=== PATIENT | female | born 1985 | race Two or more races ===

== ENCOUNTER 2018-03-21 08:22 | Outpatient (CLI) | payer OTHER | END 2018-03-21 08:30 | disposition home or self-care (01) | LOC: SONOGRAMA 08:22 | DX: N64.89 Other specified disorders of breast (principal) ==

== ENCOUNTER 2021-09-10 07:43 | Outpatient (CLI) | payer OTHER | END 2021-09-10 13:23 | disposition home or self-care (01) | LOC: LAB 07:43 | PROVIDERS: ATTEND Obstetrics & Gynecology Gynecology | DX: E03.8 Other specified hypothyroidism (principal); E78.2 Mixed hyperlipidemia; E55.9 Vitamin D deficiency, unspecified; E56.8 Deficiency of other vitamins; Z13.1 Encounter for screening for diabetes mellitus; R30.0 Dysuria ==

== ENCOUNTER 2023-02-28 08:19 | Emergency (ER) | payer OTHER ==
[~2023-02-28] VITALS: Ht 162.6 cm; Wt 65.8 kg
[2023-02-28] MEDS ORDERED: MEDROLPACK PO (09:50)
[2023-02-28] MEDS ORDERED: AMOX-CLAV 875-1 EAC1 PO (09:50)
[2023-02-28] MEDS ORDERED: TOBRAMYCIN-DEXAM5 ML OP (09:50)
[2023-02-28] MEDS ORDERED: XYZAL5 MG PO (09:50)
== END 2023-02-28 10:11 | disposition home or self-care (01) ==
LOC: ER 08:19
DX: H02.845 Edema of left lower eyelid (principal); H02.842 Edema of right lower eyelid; T78.40XA Allergy, unspecified, initial encounter

== ENCOUNTER → 2024-08-20 08:00 | Outpatient (CLI) | payer OTHER ==
[~2024-08-20 08:00] MED LIST: AMOX-CLAV 875-1 EAC1 PO; MEDROLPACK PO; TOBRAMYCIN-DEXAM5 ML OP; XYZAL5 MG PO
[2024-08-20 08:54] LABS: HEMATOCRIT 40.4 % (36.0-45.00); HEMOGLOBIN 13.8 g/dL (12.0-15.00); MEAN CELL VOLUME 97.3 fL (80.00-100.00); MEAN CORPUSCULAR HEMOGLOBIN 33.2 pg (27.00-32.0); MEAN CORPUSCULAR HGB CONC 34.1 g/dl (32.0-36.0); PLATELET COUNT 240 K/uL (150-450); RED BLOOD COUNT 4.15 M/uL (4.00-6.00)
[2024-08-20 09:05] LABS: PH,URINE 5.5 (5.0-8.0); URINE APPEARANCE Clear; URINE BILIRRUBIN Negative (NEGATIVE); URINE BLOOD Small; URINE COLOR Dark Yellow; URINE GLUCOSE Negative (NEGATIVE); URINE KETONE Trace (NEGATIVE); URINE LEUKOCYTE Small; URINE NITRATE Negative; URINE PROTEIN Trace (NEGATIVE)
[2024-08-20 09:10] LABS: URINE BACTERIA 1780.9 uL (0.0-1933); URINE EPITHELIAL CELLS 23.1 uL (0.0-38.8); URINE RBC 10.3 uL (0.0-20.8)
[2024-08-20 09:25] LABS: URINE CAST 0.14 uL (0.0-1.40)
[2024-08-20 09:58] LABS: CALCIUM 9.3 mg/dL (8.5-10.1); CREATININE SERUM 0.84 mg/dL (0.55-1.02); GFR 75.88; POTASSIUM 4.14 mEq/L (3.5-5.1); T4 TOTAL 8.07 UG/DL (4.8-13.9); TSH 2.63 uIU/mL (0.358-3.74)
== END | disposition home or self-care (01) ==
LOC: LAB 08:00
DX: E11.9 Type 2 diabetes mellitus without complications (principal); E03.9 Hypothyroidism, unspecified; D72.829 Elevated white blood cell count, unspecified; N39.0 Urinary tract infection, site not specified; N28.9 Disorder of kidney and ureter, unspecified

== ENCOUNTER 2025-06-18 07:45 | Outpatient (CLI) | payer OTHER ==
[2025-06-18 08:28] LABS: URINE APPEARANCE Clear; URINE BILIRRUBIN Negative (NEGATIVE); URINE BLOOD Negative; URINE COLOR Yellow; URINE GLUCOSE Negative (NEGATIVE); URINE KETONE 15 (NEGATIVE); URINE LEUKOCYTE Negative; URINE NITRATE Negative; URINE PROTEIN Negative (NEGATIVE); URINE UROBILINOGEN 0.2 E.U./dl
[2025-06-18 08:29] LABS: URINE BACTERIA 83.4 uL (0.0-1933); URINE EPITHELIAL CELLS 8.8 uL (0.0-38.8); URINE RBC 4.5 uL (0.0-20.8); URINE WBC 7.3 uL (0.0-23.2)
[2025-06-18 08:38] LABS: BASO % 0.7 % (0.1-1.2); EOS # 0.16 (0.04-0.54); EOS % 2.3 % (0.7-7.0); LYMPH # 1.99 (1.18-3.74); LYMPH % 29.1 % (19.3-53.1); MEAN PLATELET VOLUME 11.30 fl (9.4-12.4); MONO # 0.54 (0.24-0.82); MONO % 7.9 % (4.7-12.5); NEUT # 4.07 (1.56-6.13); NEUT % 59.7 % (34.0-71.1); RED CELL DISTRIBUTION WIDTH 12.0 % (11.6-14.4)
[2025-06-18 09:03] LABS: URINE CAST 0.28 uL (0.0-1.40)
[2025-06-18 09:20] LABS: ALT/SGPT 19.0 U/L (12-78); AST/SGOT 15.0 U/L (15-37); BILIRUBIN TOTAL 0.63 mg/dL (0.3-1.2); BUN CREA RATIO 19.0 (7.0-25.0); CHOL HDL RATIO 2.5 (0-5.0); CREATININE SERUM 0.94 mg/dL (0.55-1.02); GFR 66.64; GLOBULINA 3.7 G/DL (2.4-3.5); GLUCOSE FASTING 88.0 mg/dL (65-100); HDL 70.0 mg/dl (40-60); LDL 94.0 mg/dl (0-130); OSMOLALITY SERUM 283.0 MOSM/KG (275-295); T4 FREE 1.29 NG/ML (0.76-1.46); TSH 1.43 uIU/mL (0.358-3.74); VLDL 10.0 (0-39)
== END 2025-06-18 07:50 | disposition home or self-care (01) ==
LOC: LAB 07:45
DX: E03.8 Other specified hypothyroidism (principal); E55.9 Vitamin D deficiency, unspecified; R94.5 Abnormal results of liver function studies; Z13.220 Encounter for screening for lipoid disorders; R73.9 Hyperglycemia, unspecified; R30.0 Dysuria; E78.2 Mixed hyperlipidemia; Z13.1 Encounter for screening for diabetes mellitus; E66.9 Obesity, unspecified; Z79.899 Other long term (current) drug therapy; R10.20 Pelvic and perineal pain unspecified side; D25.1 Intramural leiomyoma of uterus; G89.3 Neoplasm related pain (acute) (chronic)